=== PATIENT | male | born 1940 | race Caucasian/White ===

== ENCOUNTER → 2016-05-24 10:49 | Outpatient (CLI) | payer MEDICARE, BC ==
[2015-09-30 08:03] VITALS: BMI 24.0
[~2016-05-24 10:49] MED LIST: ATRIPLA TABLET1 TAB PO; BACTRIM DS TABL1 TAB PO; PROZAC10 MG PO
[2016-05-24 11:33] LABS: BASOPHILS 0.3 % (0.0-2.0); EOSINOPHILS 4.8 % (0-7); HEMATOCRIT 46.4 % (42.0-54.0); HEMOGLOBIN 15.1 g/dL (13.5-17.5); IMMATURE GRANULOCYTES 0.3 % (0-5); LYMPHOCYTES 24.6 % (15-50); MCH 30.7 pg (26.0-34.0); MCHC 32.5 g/dL (31.0-37.0); MCV 94.3 fL (80.0-100.0); MEAN PLATELET VOLUME 9.8 fL (7.4-10.4); MONOCYTES 15.1 % (2-11); NEUTROPHILS 54.9 % (40-80); PLATELET COUNT 160 10x3/uL (130-400); RBC 4.92 10x6/uL (4.20-6.10)
[2016-05-24 11:46] LABS: COLOR YELLOW (YELLOW)
[2016-05-24 11:47] LABS: APPEARANCE CLOUDY (CLEAR); BACTERIA FEW /hpf (NONE SEEN); BILIRUBIN NEGATIVE (NEGATIVE); EPITHELIAL CELLS 0-5 /hpf (0-5); GLUCOSE NEGATIVE (NEGATIVE); KETONE NEGATIVE (NEGATIVE); LEUKOCYTE ESTERASE TRACE (NEGATIVE); MUCUS >1+ /lpf (NONE SEEN); NITRITE NEGATIVE (NEGATIVE); PROTEIN NEGATIVE (NEGATIVE); RED CELLS - URINE OCC /hpf (0-5); WHITE CELLS - URINE 0-5 /hpf (0-5)
[2016-05-24 11:51] LABS: ALBUMIN 3.5 g/dL (3.4-5.0); ALKALINE PHOSPHATASE 313 U/L (46-116); ALT (SGPT) 46 U/L (10-68); BILIRUBIN - TOTAL 0.45 mg/dL (0.2-1.3); CALC OSMOLALITY 279 mosm/kg (275-300); CALCIUM 9.2 mg/dL (8.5-10.1); CARBON DIOXIDE 27.3 mmol/L (21.0-32.0); CHLORIDE - SERUM 105 mmol/L (98-107); CREATININE - SERUM 0.8 mg/dL (0.6-1.3); GLUCOSE 96 mg/dL (74-106); POTASSIUM - SERUM 4.2 mmol/L (3.5-5.1); PROTEIN - SERUM 7.5 g/dL (6.4-8.2); SODIUM 140 mmol/L (136-145); UREA NITROGEN 15 mg/dL (7-18); eGFR NON AFRICAN AMERICAN > 90 mL/min (90-120)
[2016-05-25 15:21] LABS: BASOS 1 % (()); CD4 - % CD4 POS. LYMPH 16.4 % (30.8-58.5); CD4 - ABSOLUTE CD4 HELPER 148 /uL (359-1519); EOS 4 % (()); EOS (ABSOLUTE) 0.1 x10E3/uL (0.0-0.4); HEMATOCRIT 46.3 % (37.5-51.0); HEMOGLOBIN 15.1 g/dL (12.6-17.7); LYMPHS 25 % (()); LYMPHS (ABSOLUTE) 0.9 x10E3/uL (0.7-3.1); MCH 29.9 pg (26.6-33.0); MCHC 32.6 g/dL (31.5-35.7); MCV 92 fL (79-97); MONOCYTES 14 % (()); MONOCYTES (ABSOLUTE) 0.5 x10E3/uL (0.1-0.9); NEUTROPHILS 56 % (()); NEUTROPHILS (ABSOLUTE) 2.1 x10E3/uL (1.4-7.0); PLATELETS 178 x10E3/uL (150-379); RBC 5.05 x10E6/uL (4.14-5.80); WBC 3.7 x10E3/uL (3.4-10.8)
[2016-05-26 15:25] LABS: HIV-1 RNA BY PCR <20 (())
== END | disposition home or self-care (01) ==
LOC: D.LAB 10:49
PROVIDERS: Internal Medicine Infectious Disease
DX: B20 Human immunodeficiency virus [HIV] disease (principal)

== ENCOUNTER → 2016-08-26 14:00 | Outpatient (CLI) | payer MEDICARE, BC ==
[2015-09-30 08:03] VITALS: BMI 24.0
[2016-08-26 14:45] LABS: BASOPHILS 0.9 % (0-2); EOSINOPHILS 6.3 % (0-7); HEMOGLOBIN 14.8 g/dL (13.5-17.5); IMMATURE GRANULOCYTES 0.3 % (0-5); LYMPHOCYTES 25.7 % (15-50); MCH 30.9 pg (26.0-34.0); MCHC 32.2 g/dL (31.0-37.0); MEAN PLATELET VOLUME 10.2 fL (7.4-10.4); MONOCYTES 16.6 % (2-11); NEUTROPHILS 50.2 % (40-80); RBC 4.79 10x6/uL (4.20-6.10); RDW 14.5 % (11.5-14.5); WBC 3.3 10x3/uL (4.8-10.8)
[2016-08-26 14:46] LABS: PLATELET COUNT 122 10x3/uL (130-400)
[2016-08-26 15:04] LABS: ALBUMIN 3.4 g/dL (3.4-5.0); BILIRUBIN - TOTAL 0.49 mg/dL (0.2-1.3); CALCIUM 9.1 mg/dL (8.5-10.1); CARBON DIOXIDE 26.7 mmol/L (21.0-32.0); CREATININE - SERUM 1.2 mg/dL (0.6-1.3); POTASSIUM - SERUM 3.7 mmol/L (3.5-5.1)
[2016-08-27 13:15] LABS: BASO (ABSOLUTE) 0.1 x10E3/uL (0.0-0.2); BASOS 2 % (()); CD4 - % CD4 POS. LYMPH 19.5 % (30.8-58.5); CD4 - ABSOLUTE CD4 HELPER 156 /uL (359-1519); EOS 8 % (()); EOS (ABSOLUTE) 0.2 x10E3/uL (0.0-0.4); HEMATOCRIT 43.9 % (37.5-51.0); HEMOGLOBIN 14.8 g/dL (12.6-17.7); LYMPHS 27 % (()); LYMPHS (ABSOLUTE) 0.8 x10E3/uL (0.7-3.1); MCHC 33.7 g/dL (31.5-35.7); MCV 92 fL (79-97); MONOCYTES 17 % (()); MONOCYTES (ABSOLUTE) 0.5 x10E3/uL (0.1-0.9); NEUTROPHILS 45 % (()); NEUTROPHILS (ABSOLUTE) 1.3 x10E3/uL (1.4-7.0); PLATELETS 150 x10E3/uL (150-379); RBC 4.77 x10E6/uL (4.14-5.80); RDW 13.9 % (12.3-15.4); WBC 2.8 x10E3/uL (3.4-10.8)
== END | disposition home or self-care (01) ==
LOC: D.LAB 14:00
PROVIDERS: Internal Medicine Infectious Disease
DX: B20 Human immunodeficiency virus [HIV] disease (principal)

== ENCOUNTER → 2016-12-23 15:47 | Outpatient (CLI) | payer MEDICARE, BC ==
[2015-09-30 08:03] VITALS: BMI 24.0
[2016-12-23 16:16] LABS: BASOPHILS 0.6 % (0-2); EOSINOPHILS 3.6 % (0-7); HEMATOCRIT 47.2 % (42.0-54.0); HEMOGLOBIN 15.8 g/dL (13.5-17.5); IMMATURE GRANULOCYTES 0.3 % (0-5); MCH 31.2 pg (26.0-34.0); MCHC 33.5 g/dL (31.0-37.0); MCV 93.1 fL (80.0-100.0); MEAN PLATELET VOLUME 9.8 fL (7.4-10.4); MONOCYTES 17.8 % (2-11); NEUTROPHILS 52.7 % (40-80); PLATELET COUNT 135 10x3/uL (130-400); RBC 5.07 10x6/uL (4.20-6.10); RDW 15.2 % (11.5-14.5); WBC 3.6 10x3/uL (4.8-10.8)
[2016-12-23 16:25] LABS: APPEARANCE CLEAR (CLEAR); BILIRUBIN NEGATIVE (NEGATIVE); COLOR YELLOW (YELLOW); GLUCOSE NEGATIVE (NEGATIVE); KETONE NEGATIVE (NEGATIVE); LEUKOCYTE ESTERASE TRACE (NEGATIVE); NITRITE NEGATIVE (NEGATIVE); PROTEIN NEGATIVE (NEGATIVE); RED CELLS - URINE 0-5 /hpf (0-5); UROBILINOGEN NORMAL (NORMAL); WHITE CELLS - URINE 0-5 /hpf (0-5)
[2016-12-23 16:26] LABS: BACTERIA FEW /hpf (NONE SEEN); MUCUS >1+ /lpf (NONE SEEN)
[2016-12-23 16:54] LABS: ALBUMIN 3.4 g/dL (3.4-5.0); ANION GAP 11.6 mmol/L (8-16); BILIRUBIN - TOTAL 0.44 mg/dL (0.2-1.3); CALCIUM 8.9 mg/dL (8.5-10.1); CARBON DIOXIDE 27.7 mmol/L (21.0-32.0); CREATININE - SERUM 1.1 mg/dL (0.6-1.3); POTASSIUM - SERUM 4.3 mmol/L (3.5-5.1); PROTEIN - SERUM 7.2 g/dL (6.4-8.2)
[2016-12-24 12:18] LABS: BASOS 1 % (()); CD4 - % CD4 POS. LYMPH 20.1 % (30.8-58.5); CD4 - ABSOLUTE CD4 HELPER 181 /uL (359-1519); EOS 3 % (()); EOS (ABSOLUTE) 0.1 x10E3/uL (0.0-0.4); HEMATOCRIT 46.1 % (37.5-51.0); HEMOGLOBIN 15.4 g/dL (12.6-17.7); LYMPHS 26 % (()); LYMPHS (ABSOLUTE) 0.9 x10E3/uL (0.7-3.1); MCHC 33.4 g/dL (31.5-35.7); MCV 90 fL (79-97); MONOCYTES 18 % (()); MONOCYTES (ABSOLUTE) 0.6 x10E3/uL (0.1-0.9); NEUTROPHILS 51 % (()); NEUTROPHILS (ABSOLUTE) 1.8 x10E3/uL (1.4-7.0); PLATELETS 167 x10E3/uL (150-379); RBC 5.13 x10E6/uL (4.14-5.80); RDW 14.9 % (12.3-15.4); WBC 3.5 x10E3/uL (3.4-10.8)
== END | disposition home or self-care (01) ==
LOC: D.LAB 15:47
PROVIDERS: Family Medicine
DX: B20 Human immunodeficiency virus [HIV] disease (principal)

== ENCOUNTER 2017-02-22 08:03 | Emergency (ER) | payer MEDICARE, BC ==
[2015-09-30 08:03] VITALS: BMI 24.0
[2017-02-22 09:01] LABS: APPEARANCE TURBID (CLEAR); BACTERIA MODERATE /hpf (NONE SEEN); BILIRUBIN NEGATIVE (NEGATIVE); COLOR RED (YELLOW); EPITHELIAL CELLS OCC /hpf (0-5); GLUCOSE NEGATIVE (NEGATIVE); KETONE NEGATIVE (NEGATIVE); NITRITE NEGATIVE (NEGATIVE); PROTEIN 3+ mg/dL (NEGATIVE); RED CELLS - URINE >50 /hpf (0-5); SPECIFIC GRAVITY 1.015 (1.005-1.020); UROBILINOGEN NORMAL (NORMAL); WHITE CELLS - URINE 0-5 /hpf (0-5)
== END 2017-02-22 11:01 | disposition home or self-care (01) ==
LOC: D.ER 08:03
PROVIDERS: Emergency Medicine
DX: R31.9 Hematuria, unspecified (principal); B20 Human immunodeficiency virus [HIV] disease; F17.200 Nicotine dependence, unspecified, uncomplicated

== ENCOUNTER 2017-02-25 13:28 | Emergency (ER) | payer MEDICARE, BC ==
[2015-09-30 08:03] VITALS: BMI 24.0
== END 2017-02-25 18:05 | disposition home or self-care (01) ==
LOC: D.ER 13:28
DX: R33.9 Retention of urine, unspecified (principal); B20 Human immunodeficiency virus [HIV] disease

== ENCOUNTER → 2017-03-03 10:30 | Outpatient (CLI) | payer MEDICARE, BC ==
[2015-09-30 08:03] VITALS: BMI 24.0
== END | disposition home or self-care (01) ==
LOC: D.CT 10:30
DX: R31.9 Hematuria, unspecified (principal)

== ENCOUNTER → 2017-04-28 08:45 | Outpatient (CLI) | payer MEDICARE, BC ==
[2015-09-30 08:03] VITALS: BMI 24.0
[2017-04-28 10:07] LABS: BILIRUBIN - DIRECT 0.31 mg/dL (0.00-0.30); BILIRUBIN - INDIRECT 0.35 mg/dL (0.00-1.00); BILIRUBIN - TOTAL 0.66 mg/dL (0.2-1.3); PROTEIN - SERUM 7.2 g/dL (6.4-8.2)
[2017-04-28 10:23] LABS: % SATURATION 17 % (15-55); IRON 65 ug/dl (35-150); TOTAL IRON BIND CAPACITY 365 ug/dl (260-445); UNSAT IRON BIND CAPACITY 300 ug/dl (150-375)
[2017-04-29 11:18] LABS: ALPHA FETOPROTEIN -(TUMOR MRK) 2.1 ng/mL (0.0-8.3)
== END | disposition home or self-care (01) ==
LOC: D.LAB 08:45 → D.MRI 10:00
PROVIDERS: Internal Medicine Gastroenterology
DX: R93.8 Abnormal findings on diagnostic imaging of other specified body structures (principal); R74.8 Abnormal levels of other serum enzymes

== ENCOUNTER → 2017-07-11 11:00 | Outpatient (CLI) | payer MEDICARE, BC ==
[2015-09-30 08:03] VITALS: BMI 24.0
[2017-07-11 11:40] LABS: HEMOGLOBIN 14.3 g/dL (13.5-17.5); MCH 29.1 pg (26.0-34.0); MCHC 32.5 g/dL (31.0-37.0); MCV 89.4 fL (80.0-100.0); MEAN PLATELET VOLUME 8.9 fL (7.4-10.4); PLATELET COUNT 134 10x3/uL (130-400); RBC 4.92 10x6/uL (4.20-6.10); RDW 15.3 % (11.5-14.5); WBC 2.7 10x3/uL (4.8-10.8)
[2017-07-11 12:20] LABS: ALBUMIN 3.2 g/dL (3.4-5.0); ALKALINE PHOSPHATASE 209 U/L (46-116); ALT (SGPT) 34 U/L (10-68); BILIRUBIN - TOTAL 0.86 mg/dL (0.2-1.3); CALC OSMOLALITY 278 mosm/kg (275-300); CALCIUM 8.8 mg/dL (8.5-10.1); CARBON DIOXIDE 25.2 mmol/L (21.0-32.0); CHLORIDE - SERUM 105 mmol/L (98-107); CREATININE - SERUM 0.9 mg/dL (0.6-1.3); GLUCOSE 115 mg/dL (74-106); POTASSIUM - SERUM 3.8 mmol/L (3.5-5.1); PROTEIN - SERUM 7.4 g/dL (6.4-8.2); SODIUM 140 mmol/L (136-145); UREA NITROGEN 10 mg/dL (7-18); eGFR NON AFRICAN AMERICAN 88 mL/min (90-120)
[2017-07-11 12:48] LABS: EOSINOPHILS 2 % (0-7); LYMPHOCYTES 29 % (15-50); MONOCYTES 12 % (2-11); NEUTROPHILS 57 % (40-80); PLATELET ESTIMATE NORMAL
[2017-07-12 06:15] LABS: RAPID PLASMA REAGIN Non Reactive (Non Reactive)
[2017-07-12 11:20] LABS: HEPATITIS C ANTIBODY <0.1 (0.0-0.9)
[2017-07-12 13:18] LABS: BASOS 0 % (Not Estab.); CD4 - % CD4 POS. LYMPH 19.5 % (30.8-58.5); CD4 - ABSOLUTE CD4 HELPER 176 /uL (359-1519); EOS 2 % (Not Estab.); EOS (ABSOLUTE) 0.1 x10E3/uL (0.0-0.4); HEMATOCRIT 44.4 % (37.5-51.0); HEMOGLOBIN 14.4 g/dL (13.0-17.7); LYMPHS 31 % (Not Estab.); LYMPHS (ABSOLUTE) 0.9 x10E3/uL (0.7-3.1); MCH 29.7 pg (26.6-33.0); MCHC 32.4 g/dL (31.5-35.7); MCV 92 fL (79-97); MONOCYTES 17 % (Not Estab.); MONOCYTES (ABSOLUTE) 0.5 x10E3/uL (0.1-0.9); NEUTROPHILS 50 % (Not Estab.); NEUTROPHILS (ABSOLUTE) 1.5 x10E3/uL (1.4-7.0); PLATELETS 152 x10E3/uL (150-379); RBC 4.85 x10E6/uL (4.14-5.80); RDW 15.3 % (12.3-15.4)
[2017-07-13 15:28] LABS: HIV-1 RNA BY PCR <20 (())
== END | disposition home or self-care (01) ==
LOC: D.LAB 07-08 11:57
PROVIDERS: Internal Medicine Infectious Disease
DX: R79.89 Other specified abnormal findings of blood chemistry (principal); B20 Human immunodeficiency virus [HIV] disease; R94.5 Abnormal results of liver function studies

== ENCOUNTER → 2017-10-03 14:33 | Outpatient (CLI) | payer MEDICARE, BC ==
[2015-09-30 08:03] VITALS: BMI 24.0
== END | disposition home or self-care (01) ==
LOC: D.LAB 14:33
DX: K74.69 Other cirrhosis of liver (principal)

== ENCOUNTER → 2017-12-02 08:43 | Outpatient (CLI) | payer MEDICARE, BC ==
[2015-09-30 08:03] VITALS: BMI 24.0
[2017-12-02 10:11] LABS: ALBUMIN 3.2 g/dL (3.4-5.0); BILIRUBIN - DIRECT 0.23 mg/dL (0.00-0.30); BILIRUBIN - INDIRECT 0.43 mg/dL (0.00-1.00); BILIRUBIN - TOTAL 0.66 mg/dL (0.2-1.3); PROTEIN - SERUM 6.9 g/dL (6.4-8.2)
== END | disposition home or self-care (01) ==
LOC: D.US 08:43
PROVIDERS: Internal Medicine Gastroenterology
DX: K74.69 Other cirrhosis of liver (principal); B20 Human immunodeficiency virus [HIV] disease; R93.8 Abnormal findings on diagnostic imaging of other specified body structures

== ENCOUNTER → 2018-01-03 12:02 | Outpatient (CLI) | payer MEDICARE, BC ==
[2015-09-30 08:03] VITALS: BMI 24.0
[2018-01-03 12:47] LABS: BASOPHILS 0.6 % (0-2); EOSINOPHILS 2.8 % (0-7); HEMATOCRIT 45.9 % (42.0-54.0); HEMOGLOBIN 15.4 g/dL (13.5-17.5); LYMPHOCYTES 29.4 % (15-50); MCHC 33.6 g/dL (31.0-37.0); MCV 92.5 fL (80.0-100.0); MEAN PLATELET VOLUME 9.9 fL (7.4-10.4); MONOCYTES 17.3 % (2-11); NEUTROPHILS 49.9 % (40-80); RBC 4.96 10x6/uL (4.20-6.10); RDW 15.2 % (11.5-14.5); WBC 3.2 10x3/uL (4.8-10.8)
[2018-01-03 12:48] LABS: PLATELET COUNT 107 10x3/uL (130-400)
[2018-01-03 13:04] LABS: ALBUMIN 3.2 g/dL (3.4-5.0); ANION GAP 10.1 mmol/L (8-16); BILIRUBIN - TOTAL 0.64 mg/dL (0.2-1.3); CALCIUM 8.7 mg/dL (8.5-10.1); CARBON DIOXIDE 26.9 mmol/L (21.0-32.0); CHOL - HDL RATIO 6.6 ratio (2.3-4.9); CREATININE - SERUM 1.1 mg/dL (0.6-1.3); LDL-HDL RATIO 4.5 ratio (1.5-3.5); PROTEIN - SERUM 7.3 g/dL (6.4-8.2)
[2018-01-04 12:21] LABS: BASOS 1 % (Not Estab.); CD4 - % CD4 POS. LYMPH 20.5 % (30.8-58.5); CD4 - ABSOLUTE CD4 HELPER 185 /uL (359-1519); EOS 2 % (Not Estab.); EOS (ABSOLUTE) 0.1 x10E3/uL (0.0-0.4); HEMATOCRIT 47.6 % (37.5-51.0); HEMOGLOBIN 15.1 g/dL (13.0-17.7); LYMPHS 31 % (Not Estab.); LYMPHS (ABSOLUTE) 0.9 x10E3/uL (0.7-3.1); MCH 29.6 pg (26.6-33.0); MCHC 31.7 g/dL (31.5-35.7); MCV 93 fL (79-97); MONOCYTES 14 % (Not Estab.); MONOCYTES (ABSOLUTE) 0.4 x10E3/uL (0.1-0.9); NEUTROPHILS 52 % (Not Estab.); NEUTROPHILS (ABSOLUTE) 1.5 x10E3/uL (1.4-7.0); PLATELETS 134 x10E3/uL (150-379); RDW 14.9 % (12.3-15.4); WBC 2.9 x10E3/uL (3.4-10.8)
[2018-01-05 19:11] LABS: HIV-1 RNA BY PCR 50 (()); LOG10 HIV-1 RNA 1.699 (())
== END | disposition home or self-care (01) ==
LOC: D.LAB 12:02
PROVIDERS: Internal Medicine Infectious Disease
DX: E78.5 Hyperlipidemia, unspecified (principal)

== ENCOUNTER → 2018-02-02 13:46 | Outpatient (CLI) | payer MEDICARE, BC ==
[2015-09-30 08:03] VITALS: BMI 24.0
[2018-02-02 14:38] LABS: HEMATOCRIT 47.4 % (42.0-54.0); HEMOGLOBIN 15.8 g/dL (13.5-17.5); MCH 30.9 pg (26.0-34.0); MCHC 33.3 g/dL (31.0-37.0); MCV 92.8 fL (80.0-100.0); PLATELET COUNT 108 10x3/uL (130-400); RBC 5.11 10x6/uL (4.20-6.10); RDW 14.8 % (11.5-14.5); WBC 2.9 10x3/uL (4.8-10.8)
[2018-02-02 16:21] LABS: EOSINOPHILS 4 % (0-7); LYMPHOCYTES 33 % (15-50); MONOCYTES 7 % (2-11); NEUTROPHILS 54 % (40-80); PLATELET ESTIMATE NORMAL
== END | disposition home or self-care (01) ==
LOC: D.LAB 13:46
PROVIDERS: Internal Medicine Infectious Disease
DX: B20 Human immunodeficiency virus [HIV] disease (principal)

== ENCOUNTER → 2018-04-05 05:45 | Outpatient (CLI) | payer MEDICARE, BC ==
[2015-09-30 08:03] VITALS: BMI 24.0
[2018-04-05 06:37] LABS: BASOPHILS 0.6 % (0-2); EOSINOPHILS 5.3 % (0-7); HEMATOCRIT 46.2 % (42.0-54.0); HEMOGLOBIN 15.5 g/dL (13.5-17.5); IMMATURE GRANULOCYTES 0.3 % (0-5); LYMPHOCYTES 18.6 % (15-50); MCH 30.9 pg (26.0-34.0); MCHC 33.5 g/dL (31.0-37.0); MEAN PLATELET VOLUME 10.7 fL (7.4-10.4); NEUTROPHILS 62.2 % (40-80); PLATELET COUNT 122 10x3/uL (130-400); RBC 5.02 10x6/uL (4.20-6.10); RDW 14.2 % (11.5-14.5); WBC 3.4 10x3/uL (4.8-10.8)
[2018-04-05 07:00] LABS: ALBUMIN 2.9 g/dL (3.4-5.0); ANION GAP 11.9 mmol/L (8-16); BILIRUBIN - TOTAL 0.47 mg/dL (0.2-1.3); CALCIUM 8.8 mg/dL (8.5-10.1); CARBON DIOXIDE 26.3 mmol/L (21.0-32.0); CREATININE - SERUM 1.1 mg/dL (0.6-1.3); POTASSIUM - SERUM 3.2 mmol/L (3.5-5.1); PROTEIN - SERUM 7.3 g/dL (6.4-8.2)
[2018-04-06 15:17] LABS: BASOS 1 % (Not Estab.); CD4 - % CD4 POS. LYMPH 22.9 % (30.8-58.5); CD4 - ABSOLUTE CD4 HELPER 160 /uL (359-1519); EOS 5 % (Not Estab.); EOS (ABSOLUTE) 0.2 x10E3/uL (0.0-0.4); HEMATOCRIT 47.4 % (37.5-51.0); HEMOGLOBIN 15.3 g/dL (13.0-17.7); LYMPHS 18 % (Not Estab.); LYMPHS (ABSOLUTE) 0.7 x10E3/uL (0.7-3.1); MCH 30.4 pg (26.6-33.0); MCHC 32.3 g/dL (31.5-35.7); MCV 94 fL (79-97); MONOCYTES 11 % (Not Estab.); MONOCYTES (ABSOLUTE) 0.4 x10E3/uL (0.1-0.9); NEUTROPHILS 65 % (Not Estab.); NEUTROPHILS (ABSOLUTE) 2.4 x10E3/uL (1.4-7.0); PLATELETS 127 x10E3/uL (150-379); RBC 5.03 x10E6/uL (4.14-5.80); RDW 14.4 % (12.3-15.4); WBC 3.6 x10E3/uL (3.4-10.8)
[2018-04-07 15:21] LABS: HIV-1 RNA BY PCR <20 (())
== END | disposition home or self-care (01) ==
LOC: D.LAB 05:45
PROVIDERS: Internal Medicine Infectious Disease
DX: B20 Human immunodeficiency virus [HIV] disease (principal)

== ENCOUNTER → 2018-04-12 15:17 | Outpatient (CLI) | payer MEDICARE, BC ==
[2015-09-30 08:03] VITALS: BMI 24.0
== END | disposition home or self-care (01) ==
LOC: D.CT 15:17
DX: R10.32 Left lower quadrant pain (principal)

== ENCOUNTER → 2018-07-14 12:27 | Outpatient (CLI) | payer MEDICARE, BC ==
[2015-09-30 08:03] VITALS: BMI 24.0
[2018-07-14 14:25] LABS: BASOPHILS 1.1 % (0-2); EOSINOPHILS 2.9 % (0-7); HEMOGLOBIN 16.4 g/dL (13.5-17.5); IMMATURE GRANULOCYTES 0.3 % (0-5); LYMPHOCYTES 26.9 % (15-50); MCH 31.3 pg (26.0-34.0); MCHC 33.5 g/dL (31.0-37.0); MCV 93.5 fL (80.0-100.0); MONOCYTES 17.7 % (2-11); NEUTROPHILS 51.1 % (40-80); PLATELET COUNT 123 10x3/uL (130-400); RBC 5.24 10x6/uL (4.20-6.10); RDW 14.9 % (11.5-14.5); WBC 3.5 10x3/uL (4.8-10.8)
[2018-07-15 14:10] LABS: BASOS 1 % (Not Estab.); CD4 - % CD4 POS. LYMPH 23.2 % (30.8-58.5); CD4 - ABSOLUTE CD4 HELPER 255 /uL (359-1519); EOS 3 % (Not Estab.); EOS (ABSOLUTE) 0.1 x10E3/uL (0.0-0.4); G-6-PD - RBC 5.44 x10E6/uL (4.14-5.80); HEMATOCRIT 52.6 % (37.5-51.0); HEMOGLOBIN 16.8 g/dL (13.0-17.7); LYMPHS 30 % (Not Estab.); LYMPHS (ABSOLUTE) 1.1 x10E3/uL (0.7-3.1); MCH 30.9 pg (26.6-33.0); MCHC 31.9 g/dL (31.5-35.7); MCV 97 fL (79-97); MONOCYTES 16 % (Not Estab.); MONOCYTES (ABSOLUTE) 0.6 x10E3/uL (0.1-0.9); NEUTROPHILS 50 % (Not Estab.); NEUTROPHILS (ABSOLUTE) 1.8 x10E3/uL (1.4-7.0); PLATELETS 130 x10E3/uL (150-379); WBC 3.6 x10E3/uL (3.4-10.8)
[2018-07-17 09:08] LABS: HIV-1 RNA BY PCR <20 (())
[2018-07-17 13:10] LABS: G-6-PD - QUANT 296 (146-376)
[2018-07-31 11:08] LABS: RBC 5.44
== END | disposition home or self-care (01) ==
LOC: D.LAB 12:27
PROVIDERS: ATTEND Internal Medicine Infectious Disease
DX: B20 Human immunodeficiency virus [HIV] disease (principal)

== ENCOUNTER 2018-09-26 07:31 | Day surgery (SDC) | payer MEDICARE, BC ==
[~2018-09-26 07:31] MED LIST changes: -PROZAC10 MG PO; +PROZAC20 MG PO
[2018-09-26 07:54] LABS: HEMATOCRIT 49.2 % (42.0-54.0); HEMOGLOBIN 16.9 g/dL (13.5-17.5); MCH 31.8 pg (26.0-34.0); MCHC 34.3 g/dL (31.0-37.0); MCV 92.7 fL (80.0-100.0); MEAN PLATELET VOLUME 9.8 fL (7.4-10.4); RBC 5.31 10x6/uL (4.20-6.10); RDW 14.1 % (11.5-14.5); WBC 5.5 10x3/uL (4.8-10.8)
[2018-09-26] MEDS ORDERED: COREG6.25 MG PO (09:15)
[2018-09-26] MEDS ORDERED: GENVOYA TAB (09:16)
[2018-09-26 09:32] VITALS: BP 127/65; BMI 24.9
--- NOTE | 2018-09-26 13:30 | NUR ---
1306 IV DC'D. CATHETER INTACT. NO BLEEDING AT SITE. BANDAID APPLIED. PT UNDERSTANDS DISCHARGE INSTRUCTIONS.
--- NOTE | 2018-09-29 17:03 | HP ---
PATIENT: DEB TSILL MEDICAL RECORD: [id number] ACCOUNT: [id number] LOCATION:[facility] : 44 ADMISSION DATE: 09/26/18 PCP: DUNIA SORAI DO HISTORY AND PHYSICAL EXAMINATION PRINCIPAL DIAGNOSIS: History of colon polyps, in need of surveillance colonoscopy. HISTORY OF PRESENT ILLNESS: The patient has had history of colon polyps. He states he underwent a colonoscopy about 3 years ago. He has had no rectal bleeding. No abdominal pain. HOME MEDICINES: Please see the nursing list. ALLERGIES: CODEINE. SOCIAL HISTORY: He is a smoker. PAST MEDICAL AND SURGICAL HISTORY: HIV. He has a bundle-branch block, hypertension, history of cholecystectomy. PHYSICAL EXAMINATION: GENERAL: The patient does not appear acutely ill. He does not appear chronically ill. VITAL SIGNS: Reviewed. EARS: External ears appear normal. The patient is hard of hearing. EYES: Extraocular movements are intact. NECK: Trachea is midline. CHEST: No intercostal retractions. PULMONARY: Nonlabored. No stridor. IMPRESSION: History of colon polyps, in need of surveillance colonoscopy. PLAN: Plan will be surveillance colonoscopy. TRANSINT:[id number] Voice Confirmation ID: [id number] DOCUMENT ID: [id number] MELLY THOMSON MD at 1703 CC: DUNIA SORIA DO [id number] DICTATION DATE: 09/26/18 1129 INSPECTOR ELEVATORS: 09/26/18 1230 [facility] 09/26/18 [facility] [address] [place] [id number]
--- NOTE | 2018-09-29 17:12 | OP ---
PATIENT NAME: DEB STILL MEDICAL RECORD: [id number] :44 LOCATION:D.OPS ADMISSION DATE: SURGEON: REZA THOMSON MD DATE OF OPERATION: 09/26/2018 PREOPERATIVE DIAGNOSIS: History of colon polyps, in need of surveillance colonoscopy. POSTOPERATIVE DIAGNOSES: 1. History of colon polyps, in need of surveillance colonoscopy with three new colorectal polyps. 2. Right-sided prostatic nodule. SURGEON: Reza Thomson MD DIRECTOR GRAPHICS: None. BLOOD LOSS: Minimal. ANESTHESIA: IV sedation. COMPLICATIONS: None. The right-sided prostatic nodule was identified and I spoke to Dr. Soria by phone at 1205 hours on 09/26/2018. ENDOSCOPIC COURSE: The patient was conveyed to endoscopy suite electively on 09/26/2018. IV sedation was induced by the anesthesia staff. A digital rectal examination was performed. A colonoscope was inserted through the anus. It was easily advanced to the cecum. The prep was marginal. I slowly withdrew the endoscope. I irrigated and aspirated extensively. The pullback was greater than an 18-minute pullback. A combination of normal imaging and narrow band imaging were utilized. Three colorectal polyps were noted. The largest was 1.1 cm. All were sessile polyps. All were removed in their entireties utilizing hot biopsy forceps polypectomy technique. A retroflexed view was obtained in the rectum. I then unretroflexed the scope and removed it under direct vision. I will plan to see this patient in my office in 2 to 3 weeks to review the results of the biopsies. I will plan for his next surveillance colonoscopy to take place in 3 years. TRANSINT:[id number] Voice Confirmation ID: [id number] DOCUMENT ID: [id number] REZA THOMSON MD at 1712 CC: DUNIA SORIA DO [id number] DICTATION DATE: 09/26/18 1213 ENTHONE SOLDER STRIPPER: 09/26/18 1246 [facility] 09/26/18 [place] [id number]
[2018-12-25] MEDS ORDERED: SULFAMETHOXAZOL1 TA2 PO (15:11)
== END 2018-09-26 13:20 | disposition home or self-care (01) ==
LOC: D.OPS 07:31
PROVIDERS: Anesthesiology; ATTEND Surgery
DX: D12.5 Benign neoplasm of sigmoid colon (principal); N40.2 Nodular prostate without lower urinary tract symptoms; Z86.010 Personal history of colon polyps; Z01.812 Encounter for preprocedural laboratory examination

== ENCOUNTER 2018-12-26 08:30 | Day surgery (SDC) | payer MEDICARE, BC ==
[~2018-12-26] VITALS: Ht 167.6 cm; Wt 69.9 kg
[2018-12-26 06:06] LABS: HEMATOCRIT 46.5 % (42.0-54.0); HEMOGLOBIN 16.2 g/dL (13.5-17.5); MCH 31.6 pg (26.0-34.0); MCHC 34.8 g/dL (31.0-37.0); MCV 90.8 fL (80.0-100.0); MEAN PLATELET VOLUME 9.7 fL (7.4-10.4); RBC 5.12 10x6/uL (4.20-6.10); RDW 14.3 % (11.5-14.5); WBC 6.4 10x3/uL (4.8-10.8)
[2018-12-26 07:44] VITALS: BP 127/54; Ht 167.6 cm; Wt 69.9 kg
[~2018-12-26 08:30] MED LIST changes: +COREG6.25 MG PO; +GENVOYA TAB; +SULFAMETHOXAZOL1 TA2 PO
--- NOTE | 2018-12-26 10:33 | NUR ---
1030 UP TO BATHROOM. AMBULATORY WITHOUT DIFFICULTY. VOIDED URINE WITH A SMALL AMOUNT OF BLOOD NOTED. IV DC'ED WITH CATH INTACT. PRESSURE TO SITE. NO BLEEDING NOTED. DRESSING & CALL SISTER FOR D/C TRANSPORTATION. Dann GONZALEZ R.N.
--- NOTE | 2018-12-26 11:25 | NUR ---
1025 RETAINED DIET. NO COMPLAINTS OF NAUSEA. UP TO BATHROOM. VOIDED URINE WITH A SMALL AMOUNT OF BLOOD NOTED. BACK TO BED. IV DC'ED WITH CATH INTACT & 500ML LTC. DRESSING. Dann GONZALEZ R.N. 1100 GIVEN DISCHARGE INFORMATION INCLUDING MED REC, RTC APPT., [facility] OUTPATIENT D/C INSTRUCTIONS, & POST CYSTOSCOPY & PROSTATE D/C INSTRUCTIONS. TO PRIVATE CAR PER WHEELCHAIR BY VOLUNTEER. HOME WITH SISTER, ELIZA. Dann GONZALEZ R.N.
--- NOTE | 2018-12-26 11:54 | OP ---
PATIENT NAME: DEB STILL MEDICAL RECORD: [id number] :44 LOCATION:.[facility] ADMISSION DATE: SURGEON: REZA SCHAEFFER MD DATE OF OPERATION: 12/26/2018 SURGEON: Reza Schaeffer MD SHEETFED PRESS OPERATOR: CHRIS Cedeno CRNA. DIAGNOSES: Elevated PSA of 3.53, abnormal digital rectal examination with a firm right lateral prostatic ridge. PROCEDURE: Cystoscopy, transrectal ultrasound (TRUS), and prostate biopsy. FINDINGS: On cystoscopy, bilateral lateral lobe obstruction, inflamed bladder with trabeculation and diverticula. No bladder tumors. Single ureteral orifices bilaterally. Transrectal ultrasound shows a 24-gram prostate with large quantities of intraprostatic stones. Hypoechoic area at the right apex. SPECIMENS: Prostate biopsy cores. BLOOD LOSS: Minimal. CLINICAL HISTORY: This is a 78-year-old male, who was referred for a prostatic nodule, which was discovered by Dr. Landaverde at the time of colonoscopy. PSA was found to be 3.53 on 11/30/2018. There is no family history of prostate cancer. He has minimal voiding symptoms at this time. He comes for cystoscopy and prostate biopsy. HE IS ALLERGIC TO CODEINE. He was given Ancef social organization professor to the OR. DESCRIPTION OF PROCEDURE: The patient was given IV sedation. He was placed in lithotomy position. A 17-Bermudian cystoscope with 30-degree lens was used for visualization. There are no penile urethral strictures. The prostate shows obstructive lateral lobes and a tall bladder neck. The prostate is vascular. Going into the bladder, there were single ureteral orifices on each side. The bladder mucosa was diffusely inflamed. No bladder tumors were seen. The bladder was trabeculated and there were some cellules and diverticula within the bladder. The bladder was emptied through the cystoscope sheath and then the scope was removed. We then introduced the transrectal ultrasound probe. Prostate size measurements were obtained and we obtained a size of 24 grams. There are large quantities of intraprostatic stones at the junction between the BPH and the compressed pseudocapsule of the prostate. There is also a hypoechoic area in the right apex. We performed sextant biopsies with at least 3 cores from each area. Once all the specimens were obtained, we terminated the procedure. The area of the right hypoechoic area at the apex was sampled during that portion of the sampling. I will follow up with the patient in 1 week's time to check on the pathology results. TRANSINT:[id number] Voice Confirmation ID: [id number] DOCUMENT ID: [id number] OPERATIVE REPORT [id number] DEB STILL ROBERT S MD at 1154 CC: [id number] DICTATION DATE: 12/26/18948 BEET END SUPERVISOR: 12/26/18 1142 [facility] [address] [place] [address]
== END 2018-12-26 11:00 | disposition home or self-care (01) ==
LOC: D.OPS 08:30 → D.PAN 08:30 → D.OPS 10:10 → D.PAN 10:10 → D.OPS 10:30 → D.PAN 12:05
PROVIDERS: Anesthesiology; ATTEND Urology
DX: N42.0 Calculus of prostate (principal); R97.20 Elevated prostate specific antigen [PSA]

== ENCOUNTER → 2019-01-09 11:53 | Outpatient (CLI) | payer MEDICARE, BC ==
[2018-12-26 07:44] VITALS: BMI 24.9
[2019-01-09 12:23] LABS: BASOPHILS 0.6 % (0-2); EOSINOPHILS 2.7 % (0-7); HEMATOCRIT 48.2 % (42.0-54.0); HEMOGLOBIN 16.2 g/dL (13.5-17.5); IMMATURE GRANULOCYTES 0.4 % (0-5); LYMPHOCYTES 22.4 % (15-50); MCHC 33.6 g/dL (31.0-37.0); MCV 95.1 fL (80.0-100.0); MEAN PLATELET VOLUME 9.5 fL (7.4-10.4); MONOCYTES 17.5 % (2-11); NEUTROPHILS 56.4 % (40-80); PLATELET COUNT 142 10x3/uL (130-400); RBC 5.07 10x6/uL (4.20-6.10); RDW 14.9 % (11.5-14.5); WBC 5.2 10x3/uL (4.8-10.8)
[2019-01-09 12:26] LABS: APPEARANCE CLEAR (CLEAR); BILIRUBIN NEGATIVE (NEGATIVE); COLOR YELLOW (YELLOW); GLUCOSE NEGATIVE (NEGATIVE); KETONE NEGATIVE (NEGATIVE); NITRITE NEGATIVE (NEGATIVE); PROTEIN NEGATIVE (NEGATIVE); SPECIFIC GRAVITY 1.015 (1.005-1.020); UROBILINOGEN NORMAL (NORMAL)
[2019-01-09 12:29] LABS: RED CELLS - URINE 0-5 /hpf (0-5); WHITE CELLS - URINE 0-5 /hpf (NEGATIVE)
[2019-01-09 12:30] LABS: BACTERIA FEW /hpf (NEGATIVE); EPITHELIAL CELLS NSEEN /hpf (0-5)
[2019-01-09 12:38] LABS: ALBUMIN 3.2 g/dL (3.4-5.0); ALKALINE PHOSPHATASE 181 U/L (46-116); ALT (SGPT) 43 U/L (10-68); BILIRUBIN - TOTAL 0.47 mg/dL (0.2-1.3); CALC OSMOLALITY 280 mosm/kg (275-300); CALCIUM 8.7 mg/dL (8.5-10.1); CARBON DIOXIDE 30.2 mmol/L (21.0-32.0); CHLORIDE - SERUM 104 mmol/L (98-107); CREATININE - SERUM 0.9 mg/dL (0.6-1.3); POTASSIUM - SERUM 4.2 mmol/L (3.5-5.1); PROTEIN - SERUM 7.2 g/dL (6.4-8.2); SODIUM 141 mmol/L (136-145); UREA NITROGEN 15 mg/dL (7-18); eGFR NON AFRICAN AMERICAN 87 mL/min (90-120)
[2019-01-09 12:39] LABS: GLUCOSE 72 mg/dL (74-106)
[2019-01-10 15:10] LABS: BASOS 1 % (Not Estab.); CD4 - % CD4 POS. LYMPH 24.3 % (30.8-58.5); CD4 - ABSOLUTE CD4 HELPER 292 /uL (359-1519); EOS 3 % (Not Estab.); EOS (ABSOLUTE) 0.1 x10E3/uL (0.0-0.4); HEMATOCRIT 48.8 % (37.5-51.0); HEMOGLOBIN 15.7 g/dL (13.0-17.7); LYMPHS 23 % (Not Estab.); LYMPHS (ABSOLUTE) 1.2 x10E3/uL (0.7-3.1); MCH 30.3 pg (26.6-33.0); MCHC 32.2 g/dL (31.5-35.7); MCV 94 fL (79-97); MONOCYTES 18 % (Not Estab.); MONOCYTES (ABSOLUTE) 0.9 x10E3/uL (0.1-0.9); NEUTROPHILS 55 % (Not Estab.); NEUTROPHILS (ABSOLUTE) 2.9 x10E3/uL (1.4-7.0); PLATELETS 163 x10E3/uL (150-450); RBC 5.18 x10E6/uL (4.14-5.80); RDW 14.5 % (12.3-15.4); WBC 5.2 x10E3/uL (3.4-10.8)
[2019-01-12 09:10] LABS: HIV-1 RNA BY PCR 20 (()); LOG10 HIV-1 RNA 1.301 (())
== END | disposition home or self-care (01) ==
LOC: D.LAB 11:53
PROVIDERS: ATTEND Internal Medicine Infectious Disease
DX: B20 Human immunodeficiency virus [HIV] disease (principal)

== ENCOUNTER 2019-02-13 06:10 | Day surgery (SDC) | payer MEDICARE, BC ==
[2019-02-12 09:55] LABS: HEMOGLOBIN 14.8 g/dL (13.5-17.5); MCHC 32.9 g/dL (31.0-37.0); MCV 94.3 fL (80.0-100.0); MEAN PLATELET VOLUME 9.9 fL (7.4-10.4); RBC 4.77 10x6/uL (4.20-6.10); RDW 14.9 % (11.5-14.5); WBC 4.5 10x3/uL (4.8-10.8)
[2019-02-12 10:15] LABS: CALC OSMOLALITY 276 mosm/kg (275-300); CALCIUM 8.3 mg/dL (8.5-10.1); CHLORIDE - SERUM 104 mmol/L (98-107); POTASSIUM - SERUM 3.9 mmol/L (3.5-5.1); SODIUM 138 mmol/L (136-145); UREA NITROGEN 13 mg/dL (7-18); eGFR NON AFRICAN AMERICAN 77 mL/min (90-120)
[2019-02-12 10:16] LABS: GLUCOSE 120 mg/dL (74-106)
[2019-02-12 10:20] LABS: INR 0.97 (0.85-1.17); PLATELET COUNT 113 10x3/uL (130-400); PROTIME 12.4 SECONDS (11.6-15.0)
[2019-02-12 13:51] LABS: EOSINOPHILS 3 % (0-7); LYMPHOCYTES 21 % (15-50); MONOCYTES 15 % (2-11); NEUTROPHILS 61 % (40-80); PLATELET ESTIMATE DECREASED
[~2019-02-13] VITALS: Ht 165.1 cm; Wt 70.8 kg
[2019-02-13 06:51] VITALS: BP 114/64; Ht 165.1 cm; Wt 70.8 kg
--- NOTE | 2019-02-13 11:05 | OP ---
PATIENT NAME: DEB STILL MEDICAL RECORD: [id number] :44 LOCATION:D.OPS ADMISSION DATE: SURGEON: REZA SCHAEFFER MD DATE OF OPERATION: 02/13/2019 SURGEON: Reza Schaeffer MD ANESTHESIA: TIVA by Alex Melissa CRNA. DIAGNOSES: History of prostate cancer, bladder mass seen on CT scan. 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 FINDINGS: On cystoscopy, bilateral lateral lobe obstruction of the prostate. Single ureteral orifices bilaterally. Inflamed bladder, but no bladder tumors were seen. There are bilateral bladder diverticula with a right-sided diverticulum being larger than the left. PROCEDURE: Cystoscopy. BLOOD LOSS: None. CLINICAL HISTORY: This is a 78-year-old male, who was found to have an elevated PSA and an abnormal digital rectal examination with a right-sided nodule of the prostate. He had a biopsy done and this showed a right-sided prostate cancer with Vail score 3-4 in 50% of the specimen. There was perineural invasion present and his clinical stage is T2b. During metastatic testing by Dr. Sage, radiation oncology, the CT scan showed a 2 cm mass on the right side of the bladder. We are coming to repeat the cystoscopy to check for this. HE IS ALLERGIC TO CODEINE. I gave him Ancef tomahawk weapon system operator to the OR. DESCRIPTION OF PROCEDURE: The patient was given IV sedation. He was then placed into lithotomy position. A 17-Sami cystoscope with 30-degree lens was used for visualization. Findings are as outlined above. I did not see any obvious bladder tumor. There were only 2 large bladder diverticula that I could see. The bladder was emptied through the cystoscope sheath and the scope was removed. TRANSINT:[id number] Voice Confirmation ID: [id number] DOCUMENT ID: [id number] REZA SCHAEFFER MD at 1105 CC: [id number] DICTATION DATE: 02/13/19903 COMPUTER TECHNOLOGY INSTRUCTOR: 02/13/19947 [place] [id number]
--- NOTE | 2019-02-13 13:29 | NUR ---
0940 UP TO BATHROOM. AMBULATORY WITHOUT DIFFICULTY. VOIDED URINE. NO BLEEDING NOTED. IV DC'ED WITH CATH INTACT. PRESSURE TO SITE. Dann Musa.N. 0950 BLEEDING FROM IV SITE. PRESSURE APPLIED. Dann Musa.N. 09 DRESSED, AWAKE & ALERT. GIVEN DISCHARGE INFORMATION INCLUDING: MED REC, INFORMATION R/T FOLLOW UP WITH DR. SCHAEFFER & POST CYSTOSCOPY D/C INSTRUCTIONS. PT VOICED UNDERSTANDING. TO PRIVATE CAR PER WHEELCHAIR BY STAFF. HOME WITH SANTO STILL. Dann GONZALEZ R.N.
== END 2019-02-13 09:58 | disposition home or self-care (01) ==
LOC: D.OPS 06:10 → D.PAN 07:30 → D.OPS 07:30
PROVIDERS: Anesthesiology; ATTEND Urology
DX: N32.3 Diverticulum of bladder (principal); Z85.46 Personal history of malignant neoplasm of prostate

== ENCOUNTER → 2019-08-03 11:08 | Outpatient (CLI) | payer MEDICARE, BC ==
[2019-02-13 06:51] VITALS: BMI 26.0
[2019-08-03 11:55] LABS: BASOPHILS 0.5 % (0-2); EOSINOPHILS 1.3 % (0-7); HEMOGLOBIN 12.1 g/dL (13.5-17.5); LYMPHOCYTES 22.7 % (15-50); MCH 30.7 pg (26.0-34.0); MCHC 31.8 g/dL (31.0-37.0); MCV 96.4 fL (80.0-100.0); MEAN PLATELET VOLUME 10.1 fL (7.4-10.4); MONOCYTES 18.9 % (2-11); NEUTROPHILS 55.6 % (40-80); PLATELET COUNT 122 10x3/uL (130-400); RBC 3.94 10x6/uL (4.20-6.10); RDW 14.8 % (11.5-14.5)
[2019-08-03 12:47] LABS: ALBUMIN 2.9 g/dL (3.4-5.0); ALKALINE PHOSPHATASE 220 U/L (30-120); ALT (SGPT) 20 U/L (10-68); BILIRUBIN - TOTAL 0.76 mg/dL (0.2-1.3); CALC OSMOLALITY 271 mosm/kg (275-300); CALCIUM 8.4 mg/dL (8.5-10.1); CARBON DIOXIDE 27.2 mmol/L (21.0-32.0); CHLORIDE - SERUM 103 mmol/L (98-107); GLUCOSE 114 mg/dL (74-106); POTASSIUM - SERUM 4.5 mmol/L (3.5-5.1); PROTEIN - SERUM 6.3 g/dL (6.4-8.2); SODIUM 136 mmol/L (136-145); UREA NITROGEN 11 mg/dL (7-18); eGFR NON AFRICAN AMERICAN 77 mL/min (90-120)
[2019-08-04 11:08] LABS: BASOS 0 % (Not Estab.); CD4 - % CD4 POS. LYMPH 24.7 % (30.8-58.5); CD4 - ABSOLUTE CD4 HELPER 222 /uL (359-1519); EOS 1 % (Not Estab.); EOS (ABSOLUTE) 0.1 x10E3/uL (0.0-0.4); HEMATOCRIT 34.2 % (37.5-51.0); HEMOGLOBIN 11.4 g/dL (13.0-17.7); LYMPHS 23 % (Not Estab.); LYMPHS (ABSOLUTE) 0.9 x10E3/uL (0.7-3.1); MCH 30.2 pg (26.6-33.0); MCHC 33.3 g/dL (31.5-35.7); MCV 91 fL (79-97); MONOCYTES 17 % (Not Estab.); MONOCYTES (ABSOLUTE) 0.6 x10E3/uL (0.1-0.9); NEUTROPHILS 58 % (Not Estab.); NEUTROPHILS (ABSOLUTE) 2.2 x10E3/uL (1.4-7.0); PLATELETS 167 x10E3/uL (150-450); RBC 3.77 x10E6/uL (4.14-5.80); RDW 13.7 % (11.6-15.4); WBC 3.7 x10E3/uL (3.4-10.8)
== END | disposition home or self-care (01) ==
LOC: D.LAB 11:08
PROVIDERS: ATTEND Internal Medicine Infectious Disease
DX: B40.2 Pulmonary blastomycosis, unspecified (principal)

== ENCOUNTER → 2019-08-13 14:28 | Outpatient (CLI) | payer MEDICARE, BC ==
[2019-02-13 06:51] VITALS: BMI 26.0
== END | disposition home or self-care (01) ==
LOC: D.LABREF 14:28
PROVIDERS: ATTEND Internal Medicine Infectious Disease
DX: B40.2 Pulmonary blastomycosis, unspecified (principal)